=== PATIENT | female | born 1960 | race Caucasian/White ===

== ENCOUNTER 2017-06-07 13:27 | Emergency (ER) | payer MEDICARE, MEDICAID ==
[~2017-06-07 13:27] MED LIST changes: -0.9% Sodium Chloride 1,000 ML IV SCH; -EPHEDrine/NS 5 mg/mL 5 mL Syringe ONE; -Lactated Ringer's 1,000 ML IV ONE; -Ondansetron 2 mg/mL 2 mL Inj ONE; -Phenylephrine/NS 100 mCg/mL 10 mL Syringe IVPUSH ONE; -Propofol 10,000 mCg/mL 20 mL Inj ONE; -Sodium Chloride LOK Flush 10 mL Syringe IV PRN; -fentaNYL-PF 50 mCg/mL 2 mL Inj IVPUSH PRN
[2017-06-07 13:38] VITALS: BP 107/50; PULSE 68; RESP 16; O2SAT 97
--- NOTE | 2017-06-07 13:57 | ED.REPORT ---
HPI-Abd Pain F 40 and Over Date of Service Jun 07, 2017 ED Provider: Keira Shen MD Pt is a 56 y/o female with a history of anxiety and bipolar disorder who presents to the ED c/o left flank pain onset a few weeks ago. She had just completed testing in Endoscopy and requested they bring her to the ED. She had an upper and lower endoscopy for dysphagia and guaiac positive stool. Pt complained of abdominal pain before and after the endoscopy. Pt states she had a 9 mm kidney stone and needs pain medications but refuses any kind of scan. Additional symptoms include nausea and vomiting. She denies fever, chills, neck pain, SOB, or any other symptoms. There were no major concerns found by Endoscopy. Nursing Notes Stated Complaint: ABD PAIN Chief Complaint: Female Abdominal Pain Nursing Notes Reviewed: Yes Allergies: Coded Allergies: valproic acid (Verified Allergy, Severe, 06/07/17) warfarin (Verified Allergy, Unknown, 06/07/17) Scheduled Buprenorphine HCl/Naloxone HCl (Suboxone 8 mg-2 mg Sl Film) 1 Each Film 1 EACH SL DAILY Bupropion (Bupropion) 75 Mg Tablet 75 MG PO BID Carisoprodol (Soma) 250 Mg Tablet 250 MG PO TID Trazodone (Trazodone) 100 Mg Tablet 100 MG PO HS Scheduled PRN Clonazepam (Clonazepam) 1 Mg Tablet 1 MG PO BID PRN PRN For Anxiety Promethazine HCl (Phenergan) 25 Mg Supp.rect 25 MG RC PRN For Nausea General Time Seen by MD: 13:51 Chief Complaint Abdominal pain Hx Obtained From: Patient Arrived By: Walk-in Sudden in Onset?: Yes Onset Occurred: Just prior to arrival Radiation: : Flank left Severity: Current: Mild Severity: Maximum: Moderate Recent Healthcare: Recent doctor visit, Recent hospitalization Similar Sx Previous: No Past Medical History Past Medical History kidney stones chronic neck pain cervical dysplasia depression anxiety bipolar disorder diverticulosis Past Surgical History lithrotripsy (right with ureteral stent placed) Reports: , Hysterectomy, Tonsillectomy Reports: Tubal ligation Smoking History Light Tobacco Smoker Social History Other Social History: Good social support, Local resident Ambulatory Status Independent Review of Systems Constitutional: Denies: Chills, Fever Respiratory: Denies: Shortness of breath GI: Reports: Nausea, Vomiting Female: Reports: Flank pain (Left-sided) Musculoskeletal: Denies: Neck pain Complete sys rev & neg: except as marked. Physical Exam Vital Signs Vital Signs (First) Date Time Temp Pulse Resp B/P Pulse Ox O2 Delivery O2 Flow Rate FiO2 06/07/17 13:38 68 16 107/50 97 Room Air Initial VS: Reviewed Head / Eyes: Atraumatic, Normocephalic Neck: Supple, Full range of motion Extremities: Vascular intact, Neuro intact, No swelling, No tenderness Neurologic: Alert, Oriented, Nonfocal General/Constitutional: Awake, Alert Demanding, blaming multiple other people for lack of benzodiazepines and chronic pain Respiratory / Chest: Atraumatic, Breath sounds NL, Breath sounds = bilat, No respiratory distress Cardiovascular: Heart rate NL, Regular rhythm, Heart sounds NL Abdomen: Soft, Non-tender Back: Atraumatic, Full range of motion Flank / Spine / Paraspinal: Positive: Flank tender L Skin: Warm, Dry Dramatic granuloma annulare all over body Re-Eval/Medical Decision Med Decision/Clinical Course Patient presents directly from endoscopy after upper and lower endoscopy as well as IV fentanyl and Versed. Complaining of horrible left upper quadrant pain that clearly is related to a kidney stone" has documentation of the kidney stone". In talking with Dr. Benito, this patient has been having chronic abdominal pain and that was part of the reason for the endoscopy as well as her CT scan was done last week. CT scan done last week reveals an intraparenchymal renal stone which certainly does not explain the dramatic and severe pain of which she is complaining. Of note, while in the emergency room she is blaming all of her pain on her endoscopy procedure and does not mention any of her chronic medications including her Suboxone. She also requests refill of her clonazepam as her clonazepam provider is apparently out of town and she is out of all of her medications. Declined any narcotic options. Declined to refill her clonazepam. She demanded to know what she should do and was fairly sure that she would "go into withdrawal and have seizures." I explained to her that we are not able to fill chronic pain or benzodiazepine prescriptions from the emergency department. There is no evidence of any acute findings no evidence of any complication secondary to her gastroenterology procedures today and no evidence that her intraparenchymal kidney stone that has been there for well over a year should be causing worsening pain on a Saturday afternoon before a long weekend. Source of Hx: Old records Re-Evaluation/Progress : Time of Eval: 15:03 Re-Evaluation/Progress Note: Discussed plan for discharge. Patient understands and agrees with plan. F/U instructions and RTER warnings given. All questions addressed at this time. Consultation : Referral / Consult Name: Harris Benito MD Call Returned at: 13:57 Note: Discussed pt's case with storage worker, Dr. Benito. He performed the endoscopy on the pt. He states she had an upper and lower endoscopy for dysphagia and guaiac positive stool. He states that she was complaining of abdominal pain before and after surgery. There were no concerns during the endoscopy. Counseled Regarding: Diagnosis, Lab results, Need for follow-up, When/why to return to ED Discharge & Departure Primary Impression: Chronic abdominal pain Disposition: Home Discharge Condition All VS Reviewed: Yes Condition: Stable Additional Instructions: Thank you for entrusting us with your care today. Your labs and examination were reassuring. Your kidney stone is still in your kidney, therefore it shouldn't cause any of your pain. Follow-up with your primary care doctor next week for a recheck. Please return to the emergency department if you experience any new or worsening symptoms. Referrals: NOPCP (PCP) [facility] Cleo Attestation Portions of this note were transcribed by Alexa Medina. I, Dr. Shen, personally performed the history, physical exam and medical decision-making; I reviewed and confirmed the accuracy of the information in the transcribed note. Signed by: Cleo Barksdale, 06/07/17 copies to: [facility] Keira Shen MD Jun 07, 2017 13:56 Alexa Medina Jun 07, 2017 15:07
[2017-06-07] MEDS ORDERED: Ketorolac 15 mg/mL Inj IVPUSH ONE (14:10)
== END 2017-06-07 15:15 | disposition home or self-care (01) ==
LOC: SED 13:27
DX: R10.12 Left upper quadrant pain (principal); G89.29 Other chronic pain; F17.200 Nicotine dependence, unspecified, uncomplicated; F41.9 Anxiety disorder, unspecified; F32.9 Major depressive disorder, single episode, unspecified; Z87.442 Personal history of urinary calculi; Z88.8 Allergy status to other drugs, medicaments and biological substances
CPT/HCPCS: 96374; 99284; J1885

== ENCOUNTER → 2017-06-07 | Day surgery (SDC) | payer MEDICARE, MEDICAID ==
[~2017-06-07] VITALS: Ht 154.9 cm; Wt 60.0 kg
[2017-06-07] VITALS (8 sets, daily range): BP systolic 77–125; BP diastolic 37–69; PULSE 50–75; RESP 16; O2SAT 95–98
[~2017-06-07] MED LIST: 0.9% Sodium Chloride 1,000 ML IV SCH; BUPR1FIL3 SL; BUPR75TA10 PO; CARI250T PO; EPHEDrine/NS 5 mg/mL 5 mL Syringe ONE; ESZO1TAB8 PO; HYDR25CA PO; KLO1T PO; Lactated Ringer's 1,000 ML IV ONE; OMEP20CA11 PO; ONDA4TAB6 PO; Ondansetron 2 mg/mL 2 mL Inj ONE; POLY17PO2 PO; PROM25SU46 RC; Phenylephrine/NS 100 mCg/mL 10 mL Syringe IVPUSH ONE; Propofol 10,000 mCg/mL 20 mL Inj ONE; Sodium Chloride LOK Flush 10 mL Syringe IV PRN; TRAZ-118 PO; fentaNYL-PF 50 mCg/mL 2 mL Inj IVPUSH PRN
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
--- NOTE | 2017-06-07 12:08 | PCM.ANEP1 ---
Post Anesthesia PACU Phase 1 Assessment Vital Signs Vital Signs Date Time Temp Pulse Resp B/P Pulse Ox O2 Delivery O2 Flow Rate FiO2 06/07/17 12:04 50 16 88/47 97 Room Air 06/07/17 11:50 58 16 77/37 95 Room Air 06/07/17 10:46 75 16 120/69 95 Room Air Level of Alertness: Awake, talking Pain: No Nausea or Vomiting: Yes CV Function & Hydration Stable: Yes Airway Device: None Lungs: Clear to Percussion PACU Phase 2 Assessment Complications: No Follow up Care: N/A Patient Instructions Provided: N/A Shawn Honeycutt MD Jun 07, 2017 12:08
--- NOTE | 2017-06-07 13:16 | ENDO ---
[address] [address] ENDOSCOPY PROCEDURE PATIENT: MANNIE GONZALEZ : 1960 MR#: [id number] ADMIT: 06/07/2017 JOB ID: [id number] DATE OF SERVICE: 06/07/2017 TYPE OF OPERATION: Esophagogastroduodenoscopy, biopsy, colonoscopy. PREOPERATIVE DIAGNOSIS: The patient had guaiac positive stools. POSTOPERATIVE DIAGNOSIS(ES): 1. Slightly tight lower esophageal sphincter, status post biopsy. 2. Mild nonerosive gastritis. 3. Moderate sigmoid diverticulosis. 4. Small internal hemorrhoids. ANESTHESIA: Monitored anesthesia care. COMPLICATIONS: None. ESTIMATED BLOOD LOSS: Minimal. DESCRIPTION OF PROCEDURE: After the risks and benefits explained to the patient, informed consent was obtained. After anesthesia administered, upper endoscope was then inserted in the mouth, intubated into the esophagus, stomach, second portion of duodenum. Mucosa carefully examined. After procedure was done, the scope withdrawn, procedure terminated. Colonoscope was then inserted from the rectum to cecum. Mucosa carefully examined. Prep of the patient was excellent. After procedure was done, the scope withdrawn, procedure terminated. FINDINGS: Upon inspection of the esophagus, the esophagus appeared normal without masses, ulcers, lesions, except the lower esophageal sphincter was slightly tight when passing through the scope and scope was able to transverse it. Z-line located at 40 cm from incisors. Upon entering the stomach, stomach showed mild nonerosive gastritis. No masses, ulcers were seen. Retroflexion was normal. There was moderate bulbar duodenitis, but the first and second portion of the duodenum were normal. Biopsy was taken at duodenum, antrum, body, mid and distal esophagus. Upon inspection of the anus, no masses, hemorrhoids, or fissures that were seen. Throughout the entire examination, there was moderate sigmoid diverticulosis. No polyps or masses were seen. Retroflexion showed small internal hemorrhoids. IMPRESSION: 1. Small internal hemorrhoids. 2. Moderate sigmoid diverticulosis. 3. Slightly tight lower esophageal sphincter, status post biopsy. 4. Mild nonerosive gastritis. 5. Bulbar duodenitis. RECOMMENDATION: 1. Await pathology results. 2. Outpatient esophageal manometry. 3. Follow up in GI clinic as needed.
--- NOTE | 2017-06-11 16:49 | PATH ---
SURGICAL PATHOLOGY Attending Physician:Harris Benito MD CASE STATUS: Signed Out PATIENT NAME: MANNIE GONZALEZ PID: [id number] : 1960 DATE COLLECTED:06/07/2017 20:16 SPECIMEN: 1: Esophagus, Biopsy 2: Esophagus, Biopsy 3: Gastric, Biopsy 4: Stomach, Antrum, Biopsy 5: Duodenum, Biopsy CLINICAL HISTORY: ABDOMINAL PAIN, DYSPHAGIA, GASTRITIS, DUODENITIS 1). MID ESOPHAGUS BIOPSY 2). DISTAL ESOPHAGUS BIOPSY 3). GASTRIC BODY BIOPSY 4). ANTRAL BIOPSY 5). DUODENAL BIOPSY FINAL DIAGNOSIS: 1.MID ESOPHAGUS, BIOPSY: SQUAMOUS EPITHELIUM WITH NO DIAGNOSTIC ABNORMALITY. Intraepithelial eosinophils are not increased. Negative for dysplasia and malignancy. 2.DISTAL ESOPHAGUS, BIOPSY: SQUAMOUS MUCOSA WITH NO DIAGNOSTIC ABNORMALITY. Intraepithelial eosinophils are not increased. Negative for dysplasia and malignancy. 3. & 4.GASTRIC BODY AND ANTRUM, BIOPSIES: ANTRAL AND BODY-TYPE MUCOSA WITH NO DIAGNOSTIC ABNORMALITY. Negative for Helicobacter organisms. Negative for intestinal metaplasia. No evidence of dysplasia or malignancy. 5.DUODENUM, BIOPSY: DUODENAL MUCOSA WITH FOCAL FOVEOLAR METAPLASIA. Negative for active inflammation, features of sprue, dysplasia or malignancy. ICD10 R10.9 GROSS DESCRIPTION: The specimen is received in five formalin filled containers labeled with the patient's name. 1). The specimen is labeled "mid esoph" and consists of 2 portions of tissue which aggregate to 0.2 x 0.2 x 0.2 CM. The specimen is entirely submitted in cassette 1A. 2). The specimen is labeled "distal esoph" and consists of 2 portions of tissue which aggregate to 0.3 x 0.2 x 0.2 CM. The specimen is entirely submitted in cassette 2A. 3). The specimen is labeled "gastric body" and consists of 2 portions of tissue which aggregate to 0.5 x 0.3 x 0.2 CM. The specimen is entirely submitted in cassette 3A. 4). The specimen is labeled "antral" and consists of a 0.4 x 0.3 x 0.2 CM portion of tissue which is entirely submitted in cassette 4A. 5). The specimen is labeled "duodenal" and consists of 2 portions of tissue which aggregate to 0.3 x 0.3 x 0.2 CM. The specimen is entirely submitted in cassette 5A. 06/07/2017VA MICRO DESCRIPTION: See diagnosis. ICD-9 CODES: CPT CODES: 1: 86508 2: 23328 3: 62607 4: 95104 5: 23324 Electronically Signed Out Jimmy Son MD, Ph.D. [facility] [address], [place] [address] Technical component performed at [facility], [address], [place], [address]
== END | disposition home or self-care (01) ==
LOC: END 00:37
PROVIDERS: ATTEND Internal Medicine Gastroenterology
DX: K57.30 Diverticulosis of large intestine without perforation or abscess without bleeding (principal); K64.8 Other hemorrhoids; R22.2 Localized swelling, mass and lump, trunk; K29.50 Unspecified chronic gastritis without bleeding; K29.80 Duodenitis without bleeding; R19.5 Other fecal abnormalities; R13.10 Dysphagia, unspecified; R10.9 Unspecified abdominal pain; R07.89 Other chest pain; R12 Heartburn; R01.1 Cardiac murmur, unspecified; R51 Headache; R42 Dizziness and giddiness; F41.9 Anxiety disorder, unspecified; F31.9 Bipolar disorder, unspecified; F17.210 Nicotine dependence, cigarettes, uncomplicated; Z87.442 Personal history of urinary calculi; Z79.899 Other long term (current) drug therapy